=== PATIENT | male | born 1995 | race Caucasian/White ===

== ENCOUNTER 2020-11-03 00:08 | Emergency (ER) | payer OTHER | END 2020-11-03 01:41 | disposition left against medical advice (07) | LOC: FER 00:08 | DX: S63.91XA Sprain of unspecified part of right wrist and hand, initial encounter (principal); F17.210 Nicotine dependence, cigarettes, uncomplicated; Y04.2XXA Assault by strike against or bumped into by another person, initial encounter | CPT/HCPCS: 73130 ==